=== PATIENT | male | born 1935 | race Two or more races ===

== ENCOUNTER 2018-03-07 08:15 | Observation (INO) ==
[2018-03-07] MEDS ORDERED: Metoprolol Tartrate 25 MG Tablet PO ONE (09:15)
[2018-03-07] MEDS ORDERED: Chlorhexidine Gluconate 2% 1 Pack (2 Cloths) TOPICAL ONE (09:15)
[2018-03-07] MEDS ORDERED: ceFAZolin 1 GM Premix Inj 1 GM/50 ML FROZ.PIGGY IV.SIG SCH (09:30)
[2018-03-07 09:56] LABS: Baso # (Auto) 0.1 th/mm3 (0.0-0.2); Baso % (Auto) 0.7 % (0.0-2.0); Eos # (Auto) 0.1 th/mm3 (0.0-0.4); Eos % (Auto) 1.1 % (0.0-4.0); Hemoglobin 15.6 gm/dL (13.0-17.0); Lymph # (Auto) 3.9 th/mm3 (1.0-4.8); Mean Corpuscular HGB Conc 34.7 % (32.0-36.0); Mean Corpuscular Hemoglobin 31.7 pg (27.0-34.0); Mean Corpuscular Volume 91.6 fL (80.0-100.0); Mean Platelet Volume 8.8 fL (7.0-11.0); Mono # (Auto) 0.9 th/mm3 (0.0-0.9); Mono % (Auto) 8.6 % (0.0-8.0); Neut # (Auto) 5.3 th/mm3 (1.8-7.7); Neut % (Auto) 51.6 % (16.0-70.0); Platelet Count 195 th/mm3 (150-450); Red Blood Count 4.91 mil/mm3 (4.50-5.90); Red Cell Distribution Width 13.6 % (11.6-17.2); White Blood Count 10.3 th/mm3 (4.0-11.0)
[2018-03-07] MEDS ORDERED: Sodium Chlor 0.9% Inj 500 ML IV.SIG SCH (10:00)
[2018-03-07] MEDS ORDERED: Sugammadex Inj 200 MG/2 ML Vial IV.PUSH ONE (12:03)
--- NOTE | 2018-03-07 12:31 | P.OP ---
- Preoperative Diagnosis (1) Bladder mass (2) BPH with obstruction/lower urinary tract symptoms - Postoperative Diagnosis (1) BPH with obstruction/lower urinary tract symptoms (2) Bladder mass Date of procedure: 03/07/18 Procedure: cystoscopy with transurethral resection of bladder tumor 5cm in size Anesthesia: NELY Surgeon: Vernon Burnette DO Estimated blood loss (mL): 150 Pathology: other (bladder tumor) Operation and Findings: 82-year-old male with history of BPH with obstruction and a large bladder mass identified on cystoscopy. Decision made to bring the patient to the operating room to undergo transurethral resection of the bladder tumor. Risk and benefits were discussed preoperative patient is willing to proceed. The patient brought the operating room and identified by myself. He is placed in a dorsal lithotomy position, prepped draped you sterile fashion, received preprocedure antibiotics and general endotracheal tube anesthesia was administered. 22 Burmese cystoscope was inserted the bladder and cardona cystoscopy demonstrated large coaptatating prosthetic lobes with a long prostatic urethra. Median lobe was also identified. This was small. A large bladder tumor was noted on the left lateral wall. It was larger than 5 cm. The loop cystoscope was then inserted however it was not long enough to reach to the area of the bladder tumor. I could only get the scope to reach to the midportion of it. Resection then was done with the bipolar loop. Large amount of bleeding was occurring around the bladder neck due to his enlarged prostate. This area was fulgurated with the VaporTrode. Attempt was made to resect any residual bladder tumor but due to bleeding and poor visualization I was unable to see clearly. Furthermore the loop would not reach up to the area of the bladder tumor to excise it completely due to his long urethra and large bladder. 22 Burmese three-way Munson catheter was inserted and the patient was started on CBI. He was awoken and extubated transferred recovery in stable condition. He tolerated the procedure well. He will require reresection in the future with a longer instrument set as the standard set is not long enough to accommodate the procedure. He will return to the OR in 4-6 weeks.
[2018-03-07] MEDS ORDERED: Morphine Inj 4 MG/ML Vial IV.PUSH PRN (12:33)
[2018-03-07] MEDS ORDERED: fentaNYL Citrate Inj 100 MCG/2 ML Ampul ONE ×2 (12:54)
[2018-03-07] MEDS ORDERED: *HYDROmorphone PF Inj 1 MG/ML Ampul PERIprocedural Use ONLY ONE (14:03)
--- NOTE | 2018-03-07 14:34 | ECG ---
Date Performed: 03/07/2018 Time Performed: 09:32:34 PTAGE: 82 years EKG: Sinus rhythm NORMAL ECG NO PREVIOUS TRACING DOCTOR: Ravi Gomes Interpretating Date/Time 03/07/2018 14:28:38
[2018-03-07] MEDS: Sodium Chloride 0.45 % Inj 1,000 ML IV.CONT SCH ×2 (14:53→23:46)
[2018-03-07] MEDS ORDERED: Pantoprazole Inj 40 MG Vial IV.PUSH SCH (15:00)
[2018-03-07] MEDS: ceFAZolin 2 GM Premix Inj 2 GM/50 ML PIGGYBACK IV.SIG SCH (17:57)
[2018-03-07] MEDS ORDERED: Acetaminophen 325 MG Tablet PO PRN (20:36)
[2018-03-07] MEDS ORDERED: Morphine Sulfate Inj 2 MG/ML Vial IV.PUSH PRN (20:45)
[2018-03-07] MEDS: Metoprolol Tartrate 25 MG Tablet PO SCH (20:53)
[2018-03-08] MEDS: ceFAZolin 2 GM Premix Inj 2 GM/50 ML PIGGYBACK IV.SIG SCH (02:55)
[2018-03-08] MEDS: Sodium Chloride 0.45 % Inj 1,000 ML IV.CONT SCH ×2 (02:56→08:14)
--- NOTE | 2018-03-08 07:48 | P.PNURO ---
Subjective Patient symptoms today: pt fees well; urine clearing Objective Vital Signs: Vital Signs 03/07/18 09:47 03/07/18 12:40 03/07/18 12:45 Temperature 98.0 F 97.6 F Pulse Rate 86 92 H 90 Respiratory Rate 20 20 20 Blood Pressure 137/70 136/79 139/74 Pulse Oximetry 95 97 97 03/07/18 13:00 03/07/18 13:15 03/07/18 13:30 Temperature Pulse Rate 86 85 77 Respiratory Rate 22 20 21 Blood Pressure 137/75 130/61 120/55 L Pulse Oximetry 96 94 L 95 03/07/18 13:45 03/07/18 14:00 03/07/18 15:00 Temperature 97.8 F Pulse Rate 81 81 83 Respiratory Rate 22 20 20 Blood Pressure 120/58 L 119/58 L 114/58 L Pulse Oximetry 95 95 95 03/07/18 16:00 03/07/18 17:00 03/07/18 17:30 Temperature Pulse Rate 75 80 70 Respiratory Rate 22 20 22 Blood Pressure 118/56 L 113/56 L 110/59 L Pulse Oximetry 94 L 95 94 L 03/07/18 20:00 03/07/18 23:45 03/08/18 00:00 Temperature 97.9 F 98.1 F Pulse Rate 77 92 H Respiratory Rate 20 18 22 Blood Pressure 112/62 123/59 L Pulse Oximetry 93 L 93 L 03/08/18 04:00 Temperature 97.5 F L Pulse Rate 84 Respiratory Rate 20 Blood Pressure 121/70 Pulse Oximetry 95 Intake & Output 03/07/18 03/08/18 03/08/18 18:59 06:59 18:59 Intake Total 1335 / 1335 1535 / 1535 Output Total 3250 / 3250 3100 / 3100 Balance -1915 / -1915 -1565 / -1565 Weight 138 kg 138.7 kg Intake: IV 335 / 335 815 / 815 1/2 Normal Saline Inj 1,000 ML 235 / 235 765 / 765 @ 100 mls/hr IV.CONT .Q10H [facility] Rx#:[id number] Ancef 1 GM Premix Inj 1 gm In 50 / 50 50 ml @ 100 mls/hr IV.SIG COUNTER HELPER [facility] Rx#:[id number] Ancef 2 GM Premix Inj 2 gm In 50 / 50 50 / 50 50 ml @ 100 mls/hr IV.SIG Q8H [facility] Rx#:[id number] Oral 950 / 950 720 / 720 Anesthesia Amount 50 / 50 Output: Estimated Blood Loss 100 / 100 Urine Amount (Catheter) 3150 / 3150 3100 / 3100 3-way Urethral 3150 / 3150 3100 / 3100 Other: Bladder Irrigation Fluid - Amount Instilled 3-way Urethral 3,000 500 # Voids 7 # Bowel Movements 2 Weight On Admission 138 kg Result Diagrams: 03/07/18 09:20 Medications and IVs: Active Medications Generic Name Dose Route Start Last Admin Trade Name Freq PRN Reason Stop Dose Admin Acetaminophen 650 mg 03/07/18 20:36 03/07/18 20:54 Tylenol PO 650 mg Q6H PRN Administration HEADACHE/FEVER Hydrocodone Bitart/Acetaminophen 1 tab 03/07/18 20:37 Reasnor 5/325 PO Q4H PRN PAIN SCALE 1 TO 10 Albuterol 2 puff 03/07/18 18:00 03/08/18 06:07 Ventolin Hfa Inh INH Not Given Q6HR [facility] Albuterol 1 ampul 03/07/18 12:40 Duoneb Neb (Prn) NEB Q4HR NEB PRN RESPIRATORY DISTRESS Amlodipine Besylate 10 mg 03/08/18 09:00 Norvasc PO DAILY [facility] Lactated Ringer's 1,000 mls @ 30 mls/hr 03/07/18 09:15 03/07/18 10:25 Lr 1000 Ml Inj IV.SIG 03/08/18 09:14 30 mls/hr .Q24H [facility] Administration Sodium Chloride 500 mls @ 30 mls/hr 03/07/18 10:00 03/07/18 15:39 Ns Inj IV.SIG Not Given .Q10H [facility] Cefazolin Sodium/Dextrose 1 gm in 50 mls @ 100 mls/hr 03/07/18 09:30 10:50 Ancef 1 Gm Premix Inj IV.SIG 03/10/18 09:29 Infused COUNTER HELPER [facility] Infusion Sodium Chloride 1,000 mls @ 100 mls/hr 03/07/18 12:45 03/08/18 02:56 1/2 Normal Saline Inj IV.CONT 100 mls/hr .Q10H [facility] Administration Losartan Potassium 100 mg 03/08/18 09:00 Cozaar PO DAILY [facility] Metoprolol Tartrate 25 mg 03/07/18 21:00 03/07/18 20:53 Lopressor PO 25 mg BID [facility] Administration Miscellaneous Information 0 each 03/07/18 12:45 Misc Nursing Information OTHER 03/08/18 12:44 UNSCH PRN SEE LABEL COMMENTS Morphine Sulfate 2 mg 03/07/18 20:45 Morphine Inj IV.PUSH Q4H PRN ABDOMINAL PAIN Ondansetron HCl 4 mg 03/07/18 12:34 Zofran Inj IV.PUSH Q6H PRN NAUSEA OR VOMITING Pantoprazole Sodium 40 mg 03/08/18 09:00 Protonix PO DAILY [facility] Tamsulosin HCl 0.4 mg 03/08/18 09:00 Flomax PO DAILY [facility] Zolpidem Tartrate 10 mg 03/07/18 21:00 03/07/18 22:10 Ambien PO 10 mg HS PRN Administration SLEEP Objective Remarks: abd:soft,nt,nd chandra: clearing Assessment and Plan - Plan stable s/p turbt d/c home chandra removal on Sunday in office
[2018-03-08] MEDS: Metoprolol Tartrate 25 MG Tablet PO SCH (08:14)
[2018-03-08] MEDS ORDERED: amLODIPine 10 MG Tablet PO SCH (09:00)
== END 2018-03-08 11:07 | disposition home or self-care (01) ==
LOC: HSDC 08:15 → HSDI 08:15 → N07 18:17
PROVIDERS: ADMIT Urology; ATTEND Urology